=== PATIENT | female | born 1965 ===

== ENCOUNTER 2017-10-24 17:25 | Emergency (ER) | payer OTHER ==
[~2017-10-24] VITALS: Ht 152.4 cm; Wt 59.9 kg
[2017-10-24] MEDS ORDERED: SYNTHROID50 MCG (17:33)
[2017-10-24] MEDS ORDERED: LISINOPRIL10 MG (17:33)
[2017-10-24] MEDS ORDERED: NEURONTIN800 MG (17:34)
== END 2017-10-24 21:56 | disposition home or self-care (01) ==
LOC: ER 17:25
DX: J11.1 Influenza due to unidentified influenza virus with other respiratory manifestations (principal)

== ENCOUNTER → 2017-10-25 | Emergency (ER) | payer OTHER ==
[~2017-10-25] VITALS: Ht 152.4 cm; Wt 59.9 kg
[~2017-10-25] MED LIST: LISINOPRIL10 MG; NEURONTIN800 MG; SYNTHROID50 MCG
== END | disposition home or self-care (01) ==
LOC: ER 09:12
DX: F06.4 Anxiety disorder due to known physiological condition (principal); J11.1 Influenza due to unidentified influenza virus with other respiratory manifestations

== ENCOUNTER 2023-10-28 08:48 | Outpatient (CLI) | payer OTHER | END 2023-10-28 08:57 | disposition home or self-care (01) | LOC: MAMO-SONO 08:48 | PROVIDERS: ATTEND Obstetrics & Gynecology | DX: N63 Unspecified lump in breast (principal); N64.59 Other signs and symptoms in breast; N64.9 Disorder of breast, unspecified; N94.0 Mittelschmerz; R10.2 Pelvic and perineal pain; N94.89 Other specified conditions associated with female genital organs and menstrual cycle ==

== ENCOUNTER 2023-10-30 13:05 | Outpatient (CLI) | payer OTHER | END 2023-10-30 13:12 | disposition home or self-care (01) | LOC: RAD 13:05 | DX: M79.672 Pain in left foot (principal) ==

== ENCOUNTER 2023-11-17 09:18 | Outpatient (CLI) | payer OTHER | END 2023-11-17 09:24 | disposition home or self-care (01) | LOC: RAD 09:18 | PROVIDERS: ATTEND Orthopaedic Surgery Sports Medicine | DX: S62.305A Unspecified fracture of fourth metacarpal bone, left hand, initial encounter for closed fracture (principal) ==

== ENCOUNTER 2024-03-26 07:08 | Outpatient (CLI) | payer OTHER ==
[2024-03-26 07:42] LABS: PH,URINE 5.5 (5.0-8.0); URINE APPEARANCE Clear; URINE BILIRRUBIN Negative (NEGATIVE); URINE BLOOD Negative; URINE COLOR Yellow; URINE GLUCOSE Negative (NEGATIVE); URINE KETONE Negative (NEGATIVE); URINE LEUKOCYTE Small; URINE NITRATE Negative; URINE PROTEIN Negative (NEGATIVE); URINE UROBILINOGEN 0.2 E.U./dl
[2024-03-26 07:46] LABS: HEMATOCRIT 35.6 % (36.0-45.00); HEMOGLOBIN 12.1 g/dL (12.0-15.00); MEAN CELL VOLUME 90.4 fL (80.00-100.00); MEAN CORPUSCULAR HEMOGLOBIN 30.6 pg (27.00-32.0); MEAN CORPUSCULAR HGB CONC 33.9 g/dl (32.0-36.0); PLATELET COUNT 162 K/uL (150-450); RED BLOOD COUNT 3.94 M/uL (4.00-6.00); RED CELL DISTRIBUTION WIDTH 13.4 % (11.5-14.5)
[2024-03-26 07:47] LABS: URINE BACTERIA 283.4 uL (0.0-1933); URINE RBC 7.4 uL (0.0-20.8); URINE WBC 13.2 uL (0.0-23.2)
[2024-03-26 08:16] LABS: URINE CAST 0.61 uL (0.0-1.40)
[2024-03-26 08:18] LABS: ALBUMIN 4.3 gm/dL (3.4-5.0); BILIRUBIN TOTAL 0.85 mg/dL (0.3-1.2); CALCIUM 9.4 mg/dL (8.5-10.1); CHOL HDL RATIO 3.1 (0-5.0); CREATININE SERUM 0.87 mg/dL (0.55-1.02); GFR 66.87; GLOBULINA 2.8 G/DL (2.4-3.5); POTASSIUM 4.18 mEq/L (3.5-5.1); TOTAL PROTEIN 7.1 gm/dL (6.4-8.2); TSH 1.21 uIU/mL (0.358-3.74)
== END 2024-03-26 07:11 | disposition home or self-care (01) ==
LOC: LAB 07:08
DX: N39.0 Urinary tract infection, site not specified (principal); E03.8 Other specified hypothyroidism; Z12.11 Encounter for screening for malignant neoplasm of colon; E55.9 Vitamin D deficiency, unspecified; E11.9 Type 2 diabetes mellitus without complications; R50.9 Fever, unspecified; E78.2 Mixed hyperlipidemia

== ENCOUNTER 2024-03-29 08:26 | Outpatient (CLI) | payer OTHER ==
[2024-03-29 11:30] LABS: ob NEGATIVE (NEGATIVE)
== END 2024-03-29 08:42 | disposition home or self-care (01) ==
LOC: LAB 08:26
PROVIDERS: ATTEND General Practice
DX: E78.2 Mixed hyperlipidemia (principal); Z12.11 Encounter for screening for malignant neoplasm of colon; E55.9 Vitamin D deficiency, unspecified; N39.0 Urinary tract infection, site not specified; E03.8 Other specified hypothyroidism; E11.9 Type 2 diabetes mellitus without complications; R50.9 Fever, unspecified

== ENCOUNTER 2024-04-26 10:52 | Outpatient (CLI) | payer OTHER | END 2024-04-26 11:03 | disposition home or self-care (01) | LOC: RAD 10:52 | PROVIDERS: ATTEND Physical Medicine & Rehabilitation Sports Medicine | DX: M25.551 Pain in right hip (principal); M54.51 Vertebrogenic low back pain; M54.2 Cervicalgia; M25.511 Pain in right shoulder ==

== ENCOUNTER → 2024-10-11 08:05 | Outpatient (CLI) | payer OTHER ==
[2024-10-11 09:09] LABS: HEMATOCRIT 37.2 % (36.0-45.00); HEMOGLOBIN 12.2 g/dL (12.0-15.00); MEAN CELL VOLUME 92.2 fL (80.00-100.00); MEAN CORPUSCULAR HEMOGLOBIN 30.2 pg (27.00-32.0); MEAN CORPUSCULAR HGB CONC 32.7 g/dl (32.0-36.0); PLATELET COUNT 169 K/uL (150-450); RED BLOOD COUNT 4.03 M/uL (4.00-6.00)
[2024-10-11 09:27] LABS: PH,URINE 5.5 (5.0-8.0); URINE APPEARANCE Clear; URINE BILIRRUBIN Negative (NEGATIVE); URINE BLOOD Negative; URINE COLOR Yellow; URINE GLUCOSE Negative (NEGATIVE); URINE KETONE Negative (NEGATIVE); URINE LEUKOCYTE Negative; URINE NITRATE Negative; URINE PROTEIN Negative (NEGATIVE); URINE UROBILINOGEN 0.2 E.U./dl
[2024-10-11 09:29] LABS: URINE BACTERIA 84.4 uL (0.0-1933); URINE EPITHELIAL CELLS 5.5 uL (0.0-38.8); URINE RBC 5.7 uL (0.0-20.8); URINE WBC 5.1 uL (0.0-23.2)
[2024-10-11 10:05] LABS: ALBUMIN 4.1 gm/dL (3.4-5.0); BILIRUBIN TOTAL 0.63 mg/dL (0.3-1.2); CALCIUM 9.4 mg/dL (8.5-10.1); CHOL HDL RATIO 3.5 (0-5.0); CREATININE SERUM 0.86 mg/dL (0.55-1.02); GFR 67.54; GLOBULINA 3.1 G/DL (2.4-3.5); POTASSIUM 4.22 mEq/L (3.5-5.1); T4 FREE 0.96 NG/ML (0.76-1.46); TOTAL PROTEIN 7.2 gm/dL (6.4-8.2); TSH 0.416 uIU/mL (0.358-3.74)
== END | disposition home or self-care (01) ==
LOC: LAB 08:05
PROVIDERS: ATTEND Obstetrics & Gynecology
DX: Z00.00 Encounter for general adult medical examination without abnormal findings (principal); I10 Essential (primary) hypertension; E03.9 Hypothyroidism, unspecified; E78.00 Pure hypercholesterolemia, unspecified; N39.0 Urinary tract infection, site not specified; Z11.4 Encounter for screening for human immunodeficiency virus [HIV]; Z12.11 Encounter for screening for malignant neoplasm of colon; E55.9 Vitamin D deficiency, unspecified; Z21 Asymptomatic human immunodeficiency virus [HIV] infection status; R79.9 Abnormal finding of blood chemistry, unspecified; R79.89 Other specified abnormal findings of blood chemistry

== ENCOUNTER 2024-10-12 08:51 | Outpatient (CLI) | payer OTHER ==
[2024-10-12 11:36] LABS: ob NEGATIVE (NEGATIVE)
== END 2024-10-12 08:53 | disposition home or self-care (01) ==
LOC: LAB 08:51
PROVIDERS: ATTEND Obstetrics & Gynecology
DX: Z00.00 Encounter for general adult medical examination without abnormal findings (principal); I10 Essential (primary) hypertension; E03.9 Hypothyroidism, unspecified; E78.00 Pure hypercholesterolemia, unspecified; Z11.4 Encounter for screening for human immunodeficiency virus [HIV]; Z12.11 Encounter for screening for malignant neoplasm of colon; E55.9 Vitamin D deficiency, unspecified; Z21 Asymptomatic human immunodeficiency virus [HIV] infection status; R79.9 Abnormal finding of blood chemistry, unspecified; R79.89 Other specified abnormal findings of blood chemistry

== ENCOUNTER 2024-11-02 09:08 | Outpatient (CLI) | payer OTHER | END 2024-11-02 09:17 | disposition home or self-care (01) | LOC: MAMO-SONO 09:08 | PROVIDERS: ATTEND Obstetrics & Gynecology | DX: N63 Unspecified lump in breast (principal); N64.59 Other signs and symptoms in breast; N64.9 Disorder of breast, unspecified; N94.0 Mittelschmerz; R10.2 Pelvic and perineal pain; N94.89 Other specified conditions associated with female genital organs and menstrual cycle ==

== ENCOUNTER 2025-05-20 07:44 | Outpatient (CLI) | payer OTHER ==
[2025-05-20 09:34] LABS: URINE APPEARANCE Clear; URINE BILIRRUBIN Negative (NEGATIVE); URINE BLOOD Negative; URINE COLOR Yellow; URINE GLUCOSE Negative (NEGATIVE); URINE KETONE Negative (NEGATIVE); URINE LEUKOCYTE Small; URINE NITRATE Negative; URINE PROTEIN Negative (NEGATIVE); URINE UROBILINOGEN 0.2 E.U./dl
[2025-05-20 09:37] LABS: BASO % 0.7 % (0.1-1.2); EOS # 0.05 (0.04-0.54); EOS % 1.7 % (0.7-7.0); LYMPH # 1.63 (1.18-3.74); LYMPH % 53.8 % (19.3-53.1); MEAN PLATELET VOLUME 10.60 fl (9.4-12.4); MONO # 0.28 (0.24-0.82); MONO % 9.2 % (4.7-12.5); NEUT # 1.05 (1.56-6.13); NEUT % 34.6 % (34.0-71.1); RED CELL DISTRIBUTION WIDTH 12.5 % (11.6-14.4)
[2025-05-20 09:38] LABS: URINE BACTERIA 46.7 uL (0.0-1933); URINE EPITHELIAL CELLS 7.3 uL (0.0-38.8); URINE RBC 5.8 uL (0.0-20.8); URINE WBC 4.1 uL (0.0-23.2)
[2025-05-20 10:10] LABS: URINE CAST 0.00 uL (0.0-1.40)
[2025-05-20 10:18] LABS: ALT/SGPT 32.0 U/L (12-78); AST/SGOT 17.0 U/L (15-37); BILIRUBIN TOTAL 0.79 mg/dL (0.3-1.2); BUN CREA RATIO 22.0 (7.0-25.0); CHOL HDL RATIO 2.4 (0-5.0); CREATININE SERUM 0.87 mg/dL (0.55-1.02); GFR 66.64; GLOBULINA 2.6 G/DL (2.4-3.5); GLUCOSE FASTING 101.0 mg/dL (65-100); HDL 66.0 mg/dl (40-60); LDL 66.0 mg/dl (0-130); OSMOLALITY SERUM 289.0 MOSM/KG (275-295); TSH 0.68 uIU/mL (0.358-3.74); VLDL 28.0 (0-39)
== END 2025-05-20 07:52 | disposition home or self-care (01) ==
LOC: LAB 07:44
DX: E11.9 Type 2 diabetes mellitus without complications (principal); E53.9 Vitamin B deficiency, unspecified; R50.9 Fever, unspecified; E78.2 Mixed hyperlipidemia; N39.0 Urinary tract infection, site not specified; E03.8 Other specified hypothyroidism; R73.09 Other abnormal glucose; E72.11 Homocystinuria

== ENCOUNTER 2025-06-03 09:17 | Outpatient (CLI) | payer OTHER | END 2025-06-03 09:18 | disposition home or self-care (01) | LOC: NUCLEAR 09:17 | DX: Z13.820 Encounter for screening for osteoporosis (principal); M81.0 Age-related osteoporosis without current pathological fracture ==